=== PATIENT | female | born 1990 | race Caucasian/White ===

== ENCOUNTER 2017-03-16 18:18 | Emergency (ER) | payer BC, OTHER ==
[~2017-03-16] VITALS: Ht 167.6 cm; Wt 57.9 kg
[~2017-03-16 18:18] MED LIST: EFFEXOR37.5 MG PO; Motrin PO; PRENATAL1 EACH PO; Percocet 5/325,Endoc PO; Senokot S,Pericolace PO
[2017-03-16 19:57] LABS: HEMATOCRIT 36.2 % (36.0-46.0); MCH 28.9 PG (29.0-34.0); MCHC 34.3 G/DL (30.0-36.0); MCV 84.4 FL (83-99); MEAN PLAT.VOLUME 9.7 uM^3 (9.5-12.4); PLATELET COUNT 327 K/uL (156-360); RBC DIS.WIDTH-CV 12.2 % (11.8-14.6); RBC DIS.WIDTH-SD 37.3 % (39-53); RED BLOOD COUNT 4.29 M/uL (3.80-5.20); WHITE BLOOD COUNT 12.2 K/uL (4.1-10.2)
[2017-03-16 19:57] LABS: ADD MIUA? NO; BILIRUBIN NEGATIVE; BLOOD NEGATIVE; COLOR YELLOW ((YELLOW)); GLUCOSE (STRIP) NEGATIVE; KETONES NEGATIVE; LEUKOCYTES NEGATIVE; NITRITE NEGATIVE; PROTEIN (STRIP) NEGATIVE; SPECIFIC GRAVITY 1.009 (1.000-1.030); UCUL ADDED? NO; UROBILINOGEN 0.2 MG/DL (0.2-1.0)
[2017-03-16 20:11] LABS: CHLORIDE 106 mEq/L (99-109); D-DIMER ELISA 0.39 mg/L FEU (< 0.57); POTASSIUM 3.4 mEq/L (3.7-5.4); SODIUM 137 mEq/L (136-147)
[2017-03-16 20:13] LABS: GLUCOSE 115 mg/dL (70-99)
[2017-03-16 20:14] LABS: ANION GAP 10 MEQ/L (2-14)
[2017-03-16 20:15] LABS: TOTAL BILIRUBIN 0.2 mg/dL (0.0-1.0)
[2017-03-16 20:17] LABS: ALKALINE PHOSPHATASE 63 IU/L (3-129); GFR ESTIMATE (CALCULATED) > 59 mL/min/
[2017-03-16 20:18] LABS: UREA NITROGEN (BUN) 7 mg/dL (9-23)
[2017-03-16 20:52] VITALS: BP 130/86
== END 2017-03-16 21:13 | disposition home or self-care (01) ==
LOC: EME 18:18
PROVIDERS: Physician Assistant
DX: O99.342 Other mental disorders complicating pregnancy, second trimester (principal); F41.9 Anxiety disorder, unspecified; R06.00 Dyspnea, unspecified; R00.0 Tachycardia, unspecified; Z3A.19 19 weeks gestation of pregnancy
CPT/HCPCS: 80053; 81003; 85027; 85379; 93005; 99281; 99285

== ENCOUNTER 2017-07-06 12:25 | Outpatient (CLI) | payer BC, OTHER ==
[2017-07-06] VITALS (9 sets, daily range): BP systolic 125–141; BP diastolic 74–84
[~2017-07-06] VITALS: Ht 167.6 cm; Wt 64.8 kg
[2017-07-06] MEDS ORDERED: EFFEXOR50 MG PO (12:56)
[2017-07-06] MEDS ORDERED: ASPIRIN81 M2 PO (12:56)
[2017-07-06] MEDS ORDERED: PRENATAL TABLE1 EAC3 PO (12:56)
== END 2017-07-06 15:30 | disposition home or self-care (01) ==
LOC: LDRP-OP 12:25 → 2WEST 12:26 → LDRP-OP 09-09 13:32
DX: O13.3 Gestational [pregnancy-induced] hypertension without significant proteinuria, third trimester (principal); Z3A.35 35 weeks gestation of pregnancy
CPT/HCPCS: 59025; G0378

== ENCOUNTER 2017-08-03 18:39 | Inpatient (IN) | payer BC, OTHER ==
[2017-08-03] VITALS (7 sets, daily range): BP systolic 129–143; BP diastolic 80–90
[~2017-08-03] VITALS: Ht 167.6 cm; Wt 68.0 kg
[~2017-08-03 18:39] MED LIST changes: +ASPIRIN81 M2 PO; +EFFEXOR50 MG PO; +PRENATAL TABLE1 EAC3 PO
[2017-08-03 19:55] LABS: EOSINOPHIL (%) 0.2 % (0-5); HEMATOCRIT 34.4 % (36.0-46.0); IMMATURE GRANULOCYTE (%) 0.6 % (0.0-0.7); IMMATURE GRANULOCYTE COUNT 0.1 K/uL; INSTRUMENT ABS NEUTROPHIL CT 6.7 K/uL; LYMPHOCYTE COUNT 1.2 K/uL (1.0-2.8); MCH 29.5 PG (29.0-34.0); MCHC 34.6 G/DL (30.0-36.0); MCV 85.1 FL (83-99); MONOCYTE (%) 6.2 % (3-12); MONOCYTE COUNT 0.5 K/uL (0-0.8); NEUTROPHIL (%) 78.7 % (45-76); NEUTROPHIL COUNT 6.7 K/uL (1.8-6.4); PLATELET COUNT 200 K/uL (156-360); RBC DIS.WIDTH-CV 13.2 % (11.8-14.6); RBC DIS.WIDTH-SD 41.1 % (39-53); RED BLOOD COUNT 4.04 M/uL (3.80-5.20); WHITE BLOOD COUNT 8.5 K/uL (4.1-10.2)
[2017-08-03 20:04] LABS: ANION GAP 8 MEQ/L (2-14); CHLORIDE 106 MEQ/L (99-109); POTASSIUM 3.8 MEQ/L (3.7-5.4); SAMPLE HEMOLYSIS CHECK 0; SAMPLE ICTERIC CHECK 0; SAMPLE LIPEMIA CHECK 0; SODIUM 137 MEQ/L (136-147); TOTAL BILIRUBIN 0.3 MG/DL (0.0-1.0)
[2017-08-03 20:10] LABS: ALKALINE PHOSPHATASE 215 IU/L (3-129); GFR ESTIMATE (CALCULATED) > 59 mL/min/; GLUCOSE 91 mg/dL (70-99); UREA NITROGEN (BUN) 9 mg/dL (9-23)
[2017-08-04] VITALS (38 sets, daily range): BP systolic 110–152; BP diastolic 60–86
[2017-08-05 02:30] VITALS: BP 127/77
[2017-08-05 06:32] LABS: BASOPHIL COUNT 0.1 K/uL (0-0.1); EOSINOPHIL (%) 0.9 % (0-5); EOSINOPHIL COUNT 0.1 K/uL (0-0.3); HEMATOCRIT 36.3 % (36.0-46.0); IMMATURE GRANULOCYTE (%) 0.5 % (0.0-0.7); IMMATURE GRANULOCYTE COUNT 0.1 K/uL; INSTRUMENT ABS NEUTROPHIL CT 10.2 K/uL; LYMPHOCYTE COUNT 1.6 K/uL (1.0-2.8); MCH 29.6 PG (29.0-34.0); MCV 84.6 FL (83-99); MEAN PLAT.VOLUME 11.3 uM^3 (9.5-12.4); MONOCYTE (%) 6.9 % (3-12); MONOCYTE COUNT 0.9 K/uL (0-0.8); NEUTROPHIL (%) 78.8 % (45-76); NEUTROPHIL COUNT 10.2 K/uL (1.8-6.4); PLATELET COUNT 173 K/uL (156-360); RBC DIS.WIDTH-CV 13.1 % (11.8-14.6); RBC DIS.WIDTH-SD 39.8 % (39-53); RED BLOOD COUNT 4.29 M/uL (3.80-5.20)
[2017-08-05] MEDS ORDERED: IBUPROFEN800 MG PO (10:14)
== END 2017-08-05 18:30 | disposition home or self-care (01) | DRG 774 ==
LOC: LDRP-OP 18:39 → 2WEST 18:41 → LDRP-OP 09-09 00:24
PROVIDERS: Advanced Practice Midwife; Midwife
DX: O10.913 Unspecified pre-existing hypertension complicating pregnancy, third trimester (principal); Z3A.39 39 weeks gestation of pregnancy; Z37.0 Single live birth; O99.343 Other mental disorders complicating pregnancy, third trimester; F41.9 Anxiety disorder, unspecified
CPT/HCPCS: 80053; 85025; C1755; G0378; J3010; J7120

== ENCOUNTER 2017-08-15 11:52 | Emergency (ER) | payer BC, OTHER ==
[~2017-08-15] VITALS: Ht 167.6 cm; Wt 56.4 kg
[~2017-08-15 11:52] MED LIST changes: +IBUPROFEN800 MG PO
[2017-08-15 13:05] LABS: HEMATOCRIT 49.5 % (36.0-46.0); MCH 28.2 PG (29.0-34.0); MCHC 32.9 G/DL (30.0-36.0); MCV 85.6 FL (83-99); MEAN PLAT.VOLUME 9.7 uM^3 (9.5-12.4); RBC DIS.WIDTH-CV 12.1 % (11.8-14.6); RBC DIS.WIDTH-SD 37.8 % (39-53); WHITE BLOOD COUNT 9.8 K/uL (4.1-10.2)
[2017-08-15 13:06] LABS: PLATELET COUNT 430 K/uL (156-360); RED BLOOD COUNT 5.78 M/uL (3.80-5.20)
[2017-08-15 15:10] LABS: ADD MIUA? YES; BILIRUBIN NEGATIVE; BLOOD LARGE; COLOR YELLOW ((YELLOW)); GLUCOSE (STRIP) NEGATIVE; KETONES NEGATIVE; LEUKOCYTES SMALL; NITRITE NEGATIVE; PROTEIN (STRIP) NEGATIVE; SPECIFIC GRAVITY 1.014 (1.000-1.030); UROBILINOGEN 0.2 MG/DL (0.2-1.0)
[2017-08-15 15:37] LABS: BACTERIA NONE SEEN /HPF; EPITHELIAL CELLS RARE /HPF; MUCUS TRACE /LPF; RED BLOOD CELLS 40-50 /HPF (0-5); UCUL ADDED? YES
[2017-08-15 15:56] VITALS: BP 146/86
== END 2017-08-15 15:57 | disposition home or self-care (01) ==
LOC: EME 11:52
DX: O72.2 Delayed and secondary postpartum hemorrhage (principal)
CPT/HCPCS: 76801; 76856; 81003; 84702; 85027; 87086; 99281; 99285